=== PATIENT | female | born 1950 | race Caucasian/White ===

== ENCOUNTER 2018-12-09 13:57 | Observation (INO) | payer MEDICARE, BC ==
[~2018-12-09] VITALS: Ht 152.4 cm; Wt 72.7 kg
--- NOTE | ~2018-12-09 | HEMODYNAMI ---
PATIENT:DENZEL REYNA MEDICAL RECORD: [id number] : 50 LOCATION:[facility] D.2119 ADMISSION DATE: 12/09/18 Generatedon:12/10/20189:59 Patient name: DENZEL REYNA Patient #: [id number] SSN: : 1950 Date of study: 12/10/2018 Page: Of Hemodynamic Procedure Report Patient Data Patient Demographics Procedure consent was obtained First Name: DENZEL Gender: Female Last Name: AXEL : 1950 [facility] Initial: C Age: 68 year(s) Patient #: [id number] Race: Unknown Additional ID: [id number] Contact details [address]: [address] [place] [address] State: [place] City: [place] Zip code: [address] Past Medical History Allergies Allergen Reaction Date Comments Reported Other allergy 12/10/2018 PCN, MORPHINE Admission Admission Data Admission Date: 12/09/2018 Admission Time: 15:43 Admit Source: Other Insurance Payor: Medicare Room #: D.2119 Height (in.): 60 BSA: 1.7 (m2) Height (cm.): 152.4 BMI: 31.31 (kg/m2) Weight (lbs.): 160.32 Weight (kg.): 72.72 Lab Results Lab Result Date: 12/10/2018 Lab Result Time: 0:00 Biochemistry Name Units Result Min Max BUN mg/dl 13 --(--*-)-- 7 18 Creatinine mg/dl 0.9 --(-*--)-- 0.6 1.3 CBC Name Units Result Min Max Hemoglobin g/dl 13.6 --(*---)-- 13.5 17.5 Procedure Procedure Types Cath Procedure Diagnostic Procedure [facility] w/Coronaries Sedation Charges Moderate Sedation up to 15 minutes PCI Procedure Coronary Stent Coronary Stent Initial PTCA PTCA Additional Procedure Description Procedure Date Procedure Date: 12/10/2018 Procedure Start Time: 9:37 Procedure End Time: 9:56 Procedure Staff Name Function Manjit Velázquez MD Performing Physician Joy Mcdermott RT Scrub Raffy Chinchilla RN Nurse Ankita Alonzo RT Monitor Procedure Data Cath Procedure Fluoroscopy Diagnostic fluoroscopy Total fluoroscopy Time: 5.9 time: 5.9 min min Diagnostic fluoroscopy Total fluoroscopy dose: dose: 411.99 mGy 411.99 mGy Contrast Material Contrast Material Type Amount (ml) Isovue 300 94 Entry Location Entry Primary Successful Side Size Upsize Upsize Entry Closure Pel[place]o ccessful Closure Location (Fr) 1 (Fr) 2 (Fr) Remarks Device Remarks Radial Right 6 Fr Mechanical artery Short Compression Estimated blood loss: 10 ml Diagnostic catheters Device Type Used For End Catheter Placement DIAGNOSTIC [place] 110cm 5 Procedure Fr catheter ([id number]) Procedure Complications No complications Procedure Medications Medication Administration Route Dosage Oxygen etCO2 Nasal cannula 2 l/min Heparin Flush Bag added to field 2 bags (1000units/500ml NS) 0.9% NaCl I.V. 100 ml/hr Lidocaine 2% added to field 20 Radial Cocktail added to field 1 syringe (Verapomil 2mg/Nitro 400mcg/Heparin 1500units) Zofran I.V. 4 mg Fentanyl I.V. 50 mcg Versed I.V. 1 mg Fentanyl I.V. 50 mcg Versed I.V. 1 mg Radial Cocktail I.A. 1 syringe (Verapomil 2mg/Nitro 400mcg/Heparin 1500units) Fentanyl I.V. 50 mcg Versed I.V. 1 mg Fentanyl I.V. 50 mcg Heparin Bolus I.V. 4000 units Versed I.V. 1 mg Plavix P.O. 75 mg Hemodynamics Rest BSA: 1.7 (m2) HGB: 13.6 (g/dl) O2 Consumption: Estimated: 153.82 (ml/min) O2 Con sumption indexed: Estimated:90.48 (ml/min/m) Heart Rate: 64 (bpm) Snapshots Pre Cath Intra NCS Post Cath Vital Signs Time Heart Resp SPO2 etCO2 NIBP (mmHg) Rhythm Pain Sedation Rate (ipm) (%) (mmHg) Status Level (bpm) 9:20:44 62 16 100 29.3 161/94(108) NSR 0 (11) 10(A) , No pain 9:24:58 67 17 99 30.8 171/89(125) NSR 0 (11) 10(A) , No pain 9:29:16 68 16 98 31.5 152/87(117) NSR 0 (11) 10(A) , No pain 9:33:30 60 16 92 31.5 124/75(109) NSR 0 (11) 10(A) , No pain 9:37:34 66 16 94 34.5 134/73(103) NSR 0 (11) 10(A) , No pain 9:41:45 71 16 94 29.3 117/62(91) NSR 0 (11) 9(A) , No pain 9:46:36 82 16 95 12.7 130/74(97) NSR 0 (11) 9(A) , No pain 9:50:46 71 16 94 21.8 113/67(92) NSR 0 (11) 9(A) , No pain 9:54:36 85 16 96 24.8 110/73(96) NSR 0 (11) 9(A) , No pain Medications Time Medication Route Dose Verified Delivered Reason Note s Effectiveness by by 9:20:04 Oxygen etCO2 2 l/min Manjit Akbar Per physician Nasal Melania Chinchilla RN cannula 9:20:12 Heparin Flush added 2 bags Manjit Akbar used for Bag to Melania Chinchilla RN procedure (1000units/500ml field NS) 9:20:23 0.9% NaCl I.V. 100 Manjitlana Kaisery Per physician ml/hr Melania Chinchilla RN 9:20:31 Lidocaine 2% added 20ml Manjit Akbar used for to vial Melania Chinchilla oil refinery operator field 9:20:40 Radial Cocktail added 1 Manjit Kaisery used for (Verapomil to syringe Melania Chinchilla oil refinery operator 2mg/Nitro field 400mcg/Heparin 1500units) 9:29:44 Zofran I.V. 4 mg Manjit Akbar for nausea Melania Chinchilla RN 9:37:18 Fentanyl I.V. 50 mcg Manjit Kaisery for sedation Melania Chinchilla RN 9:37:25 Versed I.V. 1 mg Manjit Kaisery for sedation Melania Chinchilla RN 9:38:47 Fentanyl I.V. 50 mcg Manjit Akbar for sedation Melania Chinchilla RN 9:38:51 Versed I.V. 1 mg Manjit Akbar for sedation Melania Chinchilla RN 9:39:56 Radial Cocktail I.A. 1 Manjit mccann (Verapomil syringe Melania Velázquez MD vasodilation 2mg/Nitro 400mcg/Heparin 1500units) 9:41:03 Fentanyl I.V. 50 mcg Manjit Akbar for sedation Melania Chinchilla RN 9:41:09 Versed I.V. 1 mg Manjit Akbar for sedation Melania Chinchilla RN 9:43:21 Fentanyl I.V. 50 mcg Manjit Akbar for sedation Melania Chinchilla RN 9:45:26 Heparin Bolus I.V. 4000 Manjit Kaisery for units Melania Chinchilla RN anticoagulation 9:46:54 Versed I.V. 1 mg Manjit Akbar for sedation Melania Chinchilla RN 9:58:04 Plavix P.O. 75 mg Manjit Akbar for Melania Chinchilla RN anticoagulation Procedure Log Time Note 9:00:41 Raffy Chinchilla RN sent for patient. Start room use. 9:04:42 Time tracking: Regular hours (M-F 7:00 - 5:00) 9:04:46 Plan of Care:Hemodynamics will remain stable., Cardiac rhythm will remain stable., Comfort level will be maintained., Respiratory function will remain adequate., Patient/ family verbilizes understanding of procedure., Procedure tolerated without complication., Recovers from procedure without complications.. 9:05:32 Patient Height : 60 inches 9:05:38 Patient Weight : 160.32 lbs 9:05:41 Admit Source: Other 9:05:48 Insurance Payor : Medicare 9:06:07 Lab Result : Hemoglobin 13.6 g/dl 9:06:07 Lab Result : Creatinine 0.9 mg/dl 9:06:07 Lab Result : BUN 13 mg/dl 9:12:23 Patient allergic to Other allergyPCN, MORPHINE 9:13:49 Patient received from Med II to CCL 3 Alert and oriented. Tansferred to table in Supine position. 9:13:51 Signed procedure consent form obtained from patient. 9:13:53 Warm blankets applied, and chris hugger turned on for patient comfort. 9:13:54 Correct patient and procedure confirmed by team. 9:13:54 ECG and BP/O2 sat monitors applied to patient. 9:19:50 Vital chart was started 9:20:04 Oxygen 2 l/min etCO2 Nasal cannula was administered by Raffy Chinchilla RN; Per physician; 9:20:12 Heparin Flush Bag (1000units/500ml NS) 2 bags added to field was administered by Raffy Chinchilla RN; used for procedure; 9:20:23 0.9% NaCl 100 ml/hr I.V. was administered by Raffy Chinchilla RN; Per physician; 9:20:31 Lidocaine 2% 20ml vial added to field was administered by Raffy Chinchilla RN; used for procedure; 9:20:40 Radial Cocktail (Verapomil 2mg/Nitro 400mcg/Heparin 1500units) 1 syringe added to field was administered by Raffy Chinchilla RN; used for procedure; 9:21:10 Baseline sample Acquired. 9:21:12 Rhythm: sinus rhythm 9:21:14 Full Disclosure recording started 9:21:18 H&P Date Dictated: 12/10/2018 New H&P dictated by physician.. 9:21:19 Pre-procedure instructions explained to patient. 9:21:19 Pre-op teaching completed and patient verbalized understanding. 9:21:22 Family unavailable. 9:21:23 Patient NPO since Midnight. 9:21:25 Is the patient allergic to Iodine/contrast media? No. 9:21:27 Was the patient premedicated? No 9:21:27 Is patient on blood thinner?Yes 9:21:30 ACC The patient was administered the following blood thiners within the last 24 hours: ACCPlavix 9:21:32 Patient diabetic? No. 9:21:35 Previous problem with sedation/anesthesia? Yes NAUSEA 9:21:37 Snore? Yes 9:25:44 Sleep apnea? No 9:25:45 Deviated septum? No 9:26:23 Opens mouth fully? No 9:26:25 Sticks out tongue? Yes 9:26:27 Airway obstruction? No ? 9:26:34 Dentures? Yes ? 9:26:38 Modified Jayy's test Ulnar < 7 seconds 9:26:40 Patient pain scale 0/10 ?. 9:26:44 IV patent on arrival in right antecubital with 0.9% NaCl at [facility]. 9:26:46 Lab results completed and on chart. 9:26:49 Right Radial & Right Groin area was prepped with chlora-prep and draped in sterile fashion 9:26:50 Alarms reviewed by R. N. 9:26:50 Sharps counted by scrub and verified by R.N. 9:26:52 Use device set Radial Dx or PCI 9:26:53 ACIST Syringe (37996) opened to sterile field. 9:26:54 Bag Decanter (2002S) opened to sterile field. 9:26:55 ACIST Manifold (47367) opened to sterile field. 9:26:55 ACIST Hand Control (53288) opened to sterile field. 9:26:57 Tegaderm 4 x 4 (1626W) opened to sterile field. 9:26:59 Medline Cath Pack ([id number]) opened to sterile field. 9:26:59 DIAGNOSTIC WIRE .035 260cm J wire (276340) opened to sterile field. 9:27:00 MBrace Wrist Support ([id number]) opened to sterile field. 9:27:01 SHEATH 6FR Slender (80-7480) opened to sterile field. 9:27:41 TUBING High Pressure Extension (IABP) opened to sterile field. 9:29:44 Zofran 4 mg I.V. was administered by Raffy Chinchilla RN; for nausea; 9:34:09 Zero performed for pressure channel P1 9:35:02 --------ALL STOP TIME OUT------ 9:35:04 Final Timeout: patient, procedure, and site verified with staff and physician. All members of the team are in agreement. 9:35:06 Right Radial & Right Groin site verified by team. 9:35:08 Maximum allowable Isovue 300 dose 300ml. Physician notified. (300ml for normal creatinines. For patients with creatinine of 1.7 or higher multiply weight(kg) x 5 divided by creatinine.) 9:35:11 Fire Safety Assessment: A--An alcohol-based skin anteseptic being used preoperatively., C--Open oxygen or nitrous oxide is being used., D--An ESU, laser, or fiber-optic light is being used. 9:35:21 Physical assessment completed. ASA score P 2 - A patient with mild systemic disease as per Manjit Velázquez MD. 9:35:24 Sedation plan: IV Moderate Sedation Medication:Versed, Fentanyl 9:37:18 Fentanyl 50 mcg I.V. was administered by Raffy Chinchilla RN; for sedation; 9:37:25 Versed 1 mg I.V. was administered by Raffy Chinchilla RN; for sedation; 9:37:43 Procedure started. 9:37:53 Local anesthetic to right radial artery with Lidocaine 2% by Manjit Velázquez MD.INITIAL ACCESS ONLY 9:38:13 Zero performed for pressure channel P1 9:38:47 Fentanyl 50 mcg I.V. was administered by Raffy Chinchilla RN; for sedation; 9:38:51 Versed 1 mg I.V. was administered by Raffy Chinchilla RN; for sedation; 9:39:15 A 6 Fr Short sheath was inserted into the Right Radial artery 9:39:37 A DIAGNOSTIC [place] 110cm 5 Fr catheter (047402) was advanced over the wire and used for Procedure. 9:39:56 Radial Cocktail (Verapomil 2mg/Nitro 400mcg/Heparin 1500units) 1 syringe I.A. was administered by Manjit Velázquez MD; for vasodilation; 9:40:20 LV gram done using MAGUIRE 9:40:22 Injector settings: Ml/sec: 7, Volume: 15, 9:40:49 EF : 70 % 9:41:03 Fentanyl 50 mcg I.V. was administered by Raffy Chinchilla RN; for sedation; 9:41:09 Versed 1 mg I.V. was administered by Raffy Chinchilla RN; for sedation; 9:41:37 RCA angiography performed. 9:41:38 Catheter exchanged over wire. 9:42:14 GUIDE 6FR EBU 3.0 catheter ([id number]) opened to sterile field. 9:42:26 6 Fr EBU 3 guide catheter was inserted over the wire 9:43:21 Fentanyl 50 mcg I.V. was administered by Raffy Chinchilla RN; for sedation; 9:43:53 LCA angiography performed. 9:44:10 CHOICE PT Extra Support 182cm wire ([id number]) opened to sterile field. 9:44:11 INFLATOR Merit BasixCompak (DM5294) opened to sterile field. 9:45:26 Heparin Bolus 4000 units I.V. was administered by Raffy Chinchilla RN; for anticoagulation; 9:45:43 CHOICE ES 182 wire advanced. 9:45:44 WIRE ADVANCED ACROSS OM 9:46:54 Versed 1 mg I.V. was administered by Raffy Chinchilla RN; for sedation; :47:44 Place stent Inflation Number: 1 A INTEGRITY RX 2.5 x 08 stent ([id number]) was prepped and advanced across the 1st Ob [place]. The stent was deployed at 13 ABELARDO for 0:10 (min:sec). 9:47:48 Stent catheter was removed intact over wire. 9:47:53 Wire redirected to CIRC. 9:52:19 Inflate balloon Inflation number: 1 A EUPHORA 2.0 x 12 Balloon ([id number]) was prepped and advanced across the Mid CX, then inflated to 13 ABELARDO for 0:10 (min:sec). 9:52:31 Balloon removed over the wire. 9:52:32 Wire removed. 9:52:33 Guide catheter removed. 9:52:36 TR BAND Standard ([id number]) opened to sterile field. 9:52:43 Procedure ended.(Physican Out) 9:53:21 Sheath removed intact; hemostasis achieved with Mechanical Compression to the Right Radial artery. 9:53:26 Fluoroscopy time 05.90 minutes. 9:53:33 Fluoroscopy dose: 411.99 mGy 9:53:33 Flurop Dose total: 411.99 9:53:37 Contrast amount:Isovue 300 94ml. 9:53:39 TR band inflated with 10cc of air. 9:53:41 Post-procedure physical assessment completed. ASA score P 2 - A patient with mild systemic disease as per Manjit Velázquez MD. 9:53:44 Post procedure rhythm: sinus rhythm 9:53:47 Estimated blood loss: 10 ml 9:53:48 Post procedure instruction explained to patient.Patient verbalizes understanding. 9:53:49 Patient needs reinforcement of post procedure teaching. 9:54:38 Procedure type changed to Cath procedure, Diagnostic procedure, LHC, LHC w/Coronaries, Sedation Charges, Moderate Sedation up to 15 minutes, PCI procedure, Coronary Stent, Coronary Stent Initial, PTCA, PTCA Additional 9:55:44 Procedure and supply charges have been captured, reviewed, submitted and are correct. 9:55:47 Procedure Complication : No complications 9:55:48 Vital chart was stopped 9:55:49 See physician's report for complete and final results. 9:55:50 Report given to Pre/Post Procedure Room. 9:56:01 Patient transfered to Pre/Post Procedure Room with Bed. 9:56:02 Procedure ended. 9:56:02 Full Disclosure recording stopped 9:56:05 End room use (Document Last) 9:58:04 Plavix 75 mg P.O. was administered by Raffy Chinchilla RN; for anticoagulation; Intervention Summary Intervention Notes Time ActionType Lesion and Equipment Action# Pressure Duration Attributes Used 9:47:44 Place stent 1st Ob [place] INTEGRITY RX 1 13 00:10 2.5 x 08 stent ([id number]) 9:52:19 Inflate Mid CX EUPHORA 2.0 1 13 00:10 balloon x 12 Balloon ([id number]) Device Usage Item Name Manufacture Quantity Catalog Number Hospital Part Current Mini mal Lot# / Charge Number Stock Stock Serial# Code ACIST Acist 1 92982 340599 433955 488063 20 Syringe Medical (16436) Systems Inc Bag Decanter Microtek 1 2002S 616936 44265 293514 5 (2002S) Medical Inc. ACIST Acist 1 83733 688188 335711 663964 5 Manifold Medical (78350) Systems Inc ACIST Hand Acist 1 66389 490274 194677 034790 5 Control Medical (50304) Systems Inc Tegaderm 4 x 3M 1 1626W 482943 276885 591615 5 4 (1626W) Medline Cath Medline 1 [id number] 893119 60751 153711 5 Pack ([id number]) DIAGNOSTIC [place] 1 462437 559567 087258 187366 30 WIRE .035 260cm J wire (471451) MBrace Wrist Advanced 1 140-0250-00 986908 19888 956044 5 Support Vascular (222705884) Dynamics SHEATH 6FR Terumo 1 [id number] 788956 455578 664080 5 Slender (80-1060) TUBING High Merit 1 [id number] 889828 012566 6 5 Pressure Medical Extension (IABP) DIAGNOSTIC Terumo 1 44-5695 543148 542690 883590 5 [place] 110cm 5 Fr catheter (470470) GUIDE 6FR Medtronic 1 [id number] 428785 21152 160502 0 EBU 3.0 catheter (QL6ABL00) CHOICE PT [place] 1 [id number] 225276 752193 648396 5 Extra Scientific Support 182cm wire ([id number]) INFLATOR Merit 1 CT2531 951354 887120 775149 15 [facility] Medical BasixCompak (WL3028) INTEGRITY RX Medtronic 1 [id number] 042545 485385 722954 5 [id number] 2.5 x 08 stent ([id number]) EUPHORA 2.0 Medtronic 1 [id number] 632687 099067 932654 5 [id number] x 12 Balloon ([id number]) TR BAND Terumo 1 [id number] 478252 689665 902207 40 Standard ([id number]) Signature Audit [place] Stage Time Signature Unsigned Intra-Procedure 12/10/2018 Ankita Alonzo 9:59:23 AM RT(R) Signatures Monitor : Ankita Alonzo Signature : RT Date : Time : [place] [address] [place] [address]
[2018-12-09] MEDS ORDERED: ISOSORBIDE MONO30 M1 PO (14:08)
[2018-12-09] MEDS ORDERED: ASPIRIN325 MG PO (14:08)
[2018-12-09] MEDS ORDERED: NEXIUM40 MG PO (14:09)
[2018-12-09] MEDS ORDERED: XANAX0.25 MG PO (14:09)
[2018-12-09 14:33] LABS: BASOPHILS 0.5 % (0-2); EOSINOPHILS 2.7 % (0-7); HEMATOCRIT 43.6 % (36.0-48.0); HEMOGLOBIN 14.7 g/dL (12-16); IMMATURE GRANULOCYTES 0.5 % (0-5); LYMPHOCYTES 30.4 % (15-50); MCH 28.5 pg (26.0-34.0); MCHC 33.7 g/dL (31.0-37.0); MCV 84.7 fL (80.0-100.0); MEAN PLATELET VOLUME 11.5 fL (7.4-10.4); MONOCYTES 6.7 % (2-11); NEUTROPHILS 59.2 % (40-80); PLATELET COUNT 249 10x3/uL (130-400); RBC 5.15 10x6/uL (4.00-5.40); RDW 13.6 % (11.5-14.5); WBC 10.9 10x3/uL (4.8-10.8)
[2018-12-09 14:50] LABS: ALBUMIN 3.7 g/dL (3.4-5.0); ALKALINE PHOSPHATASE 90 U/L (46-116); ALT (SGPT) 18 U/L (10-68); BILIRUBIN - TOTAL 0.18 mg/dL (0.2-1.3); CALC OSMOLALITY 277 mosm/kg (275-300); CALCIUM 9.2 mg/dL (8.5-10.1); CARBON DIOXIDE 30.6 mmol/L (21.0-32.0); CHLORIDE - SERUM 102 mmol/L (98-107); CREATININE - SERUM 0.8 mg/dL (0.6-1.3); GLUCOSE 97 mg/dL (74-106); POTASSIUM - SERUM 3.9 mmol/L (3.5-5.1); PROTEIN - SERUM 8.1 g/dL (6.4-8.2); SODIUM 139 mmol/L (136-145); UREA NITROGEN 13 mg/dL (7-18); eGFR NON AFRICAN AMERICAN 75 mL/min (90-120)
[2018-12-09 14:58] LABS: CREATINE KINASE 72 UL (21-215); MAGNESIUM - SERUM 2.1 mg/dL (1.8-2.4)
[2018-12-09 15:03] LABS: TROPONIN-I < 0.017 ng/mL (0.000-0.060)
[2018-12-09 15:37] VITALS: BP 159/75
[2018-12-09 17:08] VITALS: BP 133/88; Ht 152.4 cm; Wt 72.7 kg
[2018-12-09] MEDS ORDERED: AMBIEN10 MG PO (19:23)
[2018-12-09 20:00] VITALS: BP 123/64
[2018-12-10] VITALS: BP 114/62
[2018-12-10 04:00] VITALS: BP 121/67
[2018-12-10 05:59] LABS: BASOPHILS 0.8 % (0-2); EOSINOPHILS 5.2 % (0-7); HEMATOCRIT 40.1 % (36.0-48.0); HEMOGLOBIN 13.6 g/dL (12-16); IMMATURE GRANULOCYTES 0.5 % (0-5); LYMPHOCYTES 38.6 % (15-50); MCH 28.4 pg (26.0-34.0); MCHC 33.9 g/dL (31.0-37.0); MCV 83.7 fL (80.0-100.0); MEAN PLATELET VOLUME 11.2 fL (7.4-10.4); MONOCYTES 7.2 % (2-11); NEUTROPHILS 47.7 % (40-80); PLATELET COUNT 210 10x3/uL (130-400); RBC 4.79 10x6/uL (4.00-5.40); RDW 13.9 % (11.5-14.5)
[2018-12-10 06:17] LABS: WBC 6.5 10x3/uL (4.8-10.8)
[2018-12-10 06:32] LABS: CALC OSMOLALITY 282 mosm/kg (275-300); CALCIUM 8.7 mg/dL (8.5-10.1); CARBON DIOXIDE 28.2 mmol/L (21.0-32.0); CHLORIDE - SERUM 105 mmol/L (98-107); CKMB 0.7 U/L (0.0-3.6); CREATINE KINASE 54 UL (21-215); CREATININE - SERUM 0.9 mg/dL (0.6-1.3); GLUCOSE 105 mg/dL (74-106); POTASSIUM - SERUM 3.8 mmol/L (3.5-5.1); SODIUM 142 mmol/L (136-145); TROPONIN-I < 0.017 ng/mL (0.000-0.060); UREA NITROGEN 13 mg/dL (7-18); eGFR NON AFRICAN AMERICAN 66 mL/min (90-120)
[2018-12-10 08:16] VITALS: BP 137/80
[2018-12-10] MEDS ORDERED: PLAVIX75 MG PO (10:23)
--- NOTE | 2018-12-12 14:39 | OP ---
PATIENT NAME: DENZEL REYNA MEDICAL RECORD: [id number] :50 LOCATION:[facility] ADMISSION DATE:12/09/18 SURGEON: AJ MOONEY MD DATE OF OPERATION: 12/10/2018 PROCEDURES: 1. PTCA and stent, left circumflex first obtuse marginal. 2. PTCA, left circumflex. 3. Left heart catheterization. 4. Selective coronary angiography. 5. Left ventriculogram. INDICATION: Angina and coronary artery disease. PROCEDURE IN DETAIL: After informed consent was obtained with detailed description of risks and benefits as well as alternative therapies, the patient elected to proceed with angiogram and angioplasty. The right radial area was prepped and draped in normal sterile fashion. The right radial artery was cannulated via modified Seldinger technique with placement of 6-Yi sheath. All catheters were exchanged through this sheath. FINDINGS: Left ventriculogram performed in standard 30-degree MAGUIRE view reveals good cardiac wall motion throughout all segments. Overall ejection fraction is estimated at 60%. SELECTIVE CORONARY ANGIOGRAPHY: 1. Left main is with no significant angiographic disease. 2. Left anterior descending has a previously placed stent that is widely patent with no restenosis. No disease elsewise throughout the LAD or its branches. 3. Left circumflex has a previously placed stent. This is widely patent. The ostium of the obtuse marginal is 90% stenosed. 4. Right coronary has moderate irregularities, but no flow-limiting stenosis. PTCA AND STENT OF THE FIRST OBTUSE MARGINAL: The stent used was 2.5 x 8 mm Integrity. This caused plaque shift into the circumflex itself. This was addressed with a 2.0 balloon. Result was 0% residual throughout. OVERALL IMPRESSION: Successful PTCA and stent of the left circumflex first obtuse marginal, going from 90% initial stenosis to 0% residual. TRANSINT:[id number] Voice Confirmation ID: [id number] DOCUMENT ID: [id number] AJ MOONEY MD at 1439 CC: [id number] DICTATION DATE: 12/10/18 0958 PREFINISH OPERATOR: 12/10/18 1540 DIS IN 12/10/18 [place] [address]
--- NOTE | 2018-12-12 14:39 | HP ---
PATIENT: DENZEL REYNA MEDICAL RECORD: [id number] ACCOUNT: [id number] LOCATION:[facility] : 50 ADMISSION DATE: 12/09/18 PCP: MARC WOODWARD MD HISTORY AND PHYSICAL EXAMINATION ADMITTING DIAGNOSES: 1. Unstable angina. 2. Coronary artery disease. 3. Previous percutaneous transluminal coronary angioplasty stent. 4. Gastroesophageal reflux disease. HISTORY OF PRESENT ILLNESS: Mrs. Reyna has a past cardiac history of PTCA stent in the distant past for 1 month. She has been having increasing episodes of chest discomfort. She was placed on a nitropatch as well as Imdur by her primary care doctor. This has helped, but she continues to have episodes of chest discomfort in an escalating fashion, just like that of her previous angina. PHYSICAL EXAMINATION: GENERAL APPEARANCE: Well-nourished, well-developed, appears stated age. Level of distress, comfortable. PSYCHIATRIC: Mental status, alert, normal affect. Orientation, oriented to time, place and person. EYES: Lids and conjunctiva, noninjected. No discharge, no pallor. ENT: Lips, teeth, gums, normal dentition. Oropharynx, no cyanosis, no pallor. NECK: Carotid arteries, bilateral normal upstroke, no bruits, no thrills. JUGULAR VEINS: No jugular venous pressure or distention. CERVICAL LYMPH NODES: Nontender, nonenlarged. THYROID: Not enlarged. Nontender. No nodules. LUNGS: Respiratory effort, unlabored. CHEST: Normal curvature. No thoracic deformity. No chest wall tenderness. Percussion, resonant. Auscultation, clear. No wheezes, no rales, no rhonchi. CARDIOVASCULAR: Precordial exam, nondisplaced. No heaves or pericardial thrills. Rate and rhythm, regular. Heart sounds, normal S1, normal S2. No S3, no gallop, no rub. Systolic murmur, not heard. Diastolic murmur, not heard. EXTREMITIES: No cyanosis, no edema. Peripheral pulses, full and equal in all extremities, except as noted. No bruits appreciated. ABDOMEN: Soft, nondistended. Normal aorta. No bruit. Nontender. No masses. Liver, nontender, no hepatomegaly. Spleen, nontender, no splenomegaly. MUSCULOSKELETAL: No joint tenderness. No joint swelling. No erythema. NEUROLOGICAL: Normal gait, normal strength, normal tone. SKIN: Warm and dry. OVERALL IMPRESSION: Unstable angina in an increasing fashion. We will proceed with repeat coronary angiography. Further care depends upon the findings of the angiography. TRANSINT:[id number] Voice Confirmation ID: [id number] DOCUMENT ID: [id number] HISTORY AND PHYSICAL [id number] DENZEL REYNA, AJ ARIAS at 1439 CC: [id number] DICTATION DATE: 12/10/18812 GRADER PATROL: 12/10/18 1259 DIS IN 12/10/18 [facility] [address] [place] [address]
--- NOTE | 2018-12-12 14:39 | DS ---
PATIENT:DENZEL REYNA :50 MEDICAL RECORD: [id number] DISCHARGE SUMMARY ADMISSION DATE: 12/09/18 DISCHARGE DATE: 12/10/18 DIAGNOSES: 1. Percutaneous transluminal coronary angioplasty stent circumflex this admission. 2. Unstable angina. 3. Coronary artery disease. 4. Gastroesophageal reflux disease. HOSPITAL COURSE: Mrs. Reyna presents with anginal symptomatology. She has a past history of stenting in the distant past. She underwent cardiac catheterization revealing significant stenosis of the circumflex, first obtuse marginal, underwent successful PTCA stent of this territory, had an uneventful postop course. She was discharged home with the addition of Plavix to her medical regimen. She will follow up with [facility] in 1 month. TRANSINT:[id number] Voice Confirmation ID: [id number] DOCUMENT ID: [id number] AJ MOONEY MD at 1439 CC: [id number] DICTATION DATE: 12/10/18 0959 ZOO DIRECTOR: 12/11/18 0209 DIS IN 12/10/18 [place] [address] [place] [address]
== END 2018-12-10 14:00 | disposition home or self-care (01) ==
LOC: D.ER 13:57 → OBSVTIME 15:43 → D.EDHOLD 15:43 → D.M2 15:53 → D.CLR 12-10 10:14
PROVIDERS: Family Medicine; ADMIT Internal Medicine Interventional Cardiology; ATTEND Internal Medicine Interventional Cardiology
DX: I25.110 Atherosclerotic heart disease of native coronary artery with unstable angina pectoris (principal); K21.9 Gastro-esophageal reflux disease without esophagitis

== ENCOUNTER 2019-02-01 08:24 | Emergency (ER) | payer MEDICARE, BC ==
[~2019-02-01 08:24] MED LIST: AMBIEN10 MG PO; ASPIRIN325 MG PO; ISOSORBIDE MONO30 M1 PO; NEXIUM40 MG PO; PLAVIX75 MG PO; XANAX0.25 MG PO
[2019-02-01 08:39] VITALS: BMI 30.9
[2019-02-01 09:27] LABS: APPEARANCE CLEAR (CLEAR); BILIRUBIN NEGATIVE (NEGATIVE); COLOR YELLOW (YELLOW); GLUCOSE NEGATIVE (NEGATIVE); KETONE NEGATIVE (NEGATIVE); NITRITE NEGATIVE (NEGATIVE); PROTEIN NEGATIVE (NEGATIVE); SPECIFIC GRAVITY 1.015 (1.005-1.020); UROBILINOGEN NORMAL (NORMAL)
[2019-02-01 10:02] LABS: ALBUMIN 3.5 g/dL (3.4-5.0); ALKALINE PHOSPHATASE 79 U/L (46-116); ALT (SGPT) 16 U/L (10-68); BILIRUBIN - TOTAL 0.35 mg/dL (0.2-1.3); CALC OSMOLALITY 280 mosm/kg (275-300); CALCIUM 8.3 mg/dL (8.5-10.1); CARBON DIOXIDE 27.5 mmol/L (21.0-32.0); CHLORIDE - SERUM 107 mmol/L (98-107); CREATININE - SERUM 0.9 mg/dL (0.6-1.3); GLUCOSE 112 mg/dL (74-106); PROTEIN - SERUM 6.6 g/dL (6.4-8.2); SODIUM 141 mmol/L (136-145); UREA NITROGEN 9 mg/dL (7-18); eGFR NON AFRICAN AMERICAN 66 mL/min (90-120)
[2019-02-01 10:05] LABS: AMYLASE - SERUM 28 U/L (25-115); LIPASE 131 U/L (73-393); TROPONIN-I < 0.017 ng/mL (0.000-0.060)
[2019-02-01 10:09] LABS: BASOPHILS 0.5 % (0-2); EOSINOPHILS 3.1 % (0-7); HEMATOCRIT 43.4 % (36.0-48.0); HEMOGLOBIN 14.8 g/dL (12-16); IMMATURE GRANULOCYTES 0.3 % (0-5); LYMPHOCYTES 22.6 % (15-50); MCH 28.6 pg (26.0-34.0); MCHC 34.1 g/dL (31.0-37.0); MCV 83.9 fL (80.0-100.0); MEAN PLATELET VOLUME 11.8 fL (7.4-10.4); MONOCYTES 7.8 % (2-11); NEUTROPHILS 65.7 % (40-80); PLATELET COUNT 239 10x3/uL (130-400); RBC 5.17 10x6/uL (4.00-5.40); RDW 14.5 % (11.5-14.5); WBC 11.1 10x3/uL (4.8-10.8)
[2019-02-01] MEDS ORDERED: ZOFRAN ODT4 MG/UDTAB PO (10:25)
[2019-02-01] MEDS ORDERED: LOMOTIL 2.5-0.1 EAC1 PO (10:31)
[2019-02-01] MEDS ORDERED: HYDROCODON-ACE1 EAC2 PO (10:36)
[2019-02-01 10:42] VITALS: BP 139/61
== END 2019-02-01 10:43 | disposition home or self-care (01) ==
LOC: D.ER 08:24
PROVIDERS: Emergency Medicine
DX: R11.10 Vomiting, unspecified (principal); R19.7 Diarrhea, unspecified

== ENCOUNTER → 2019-10-23 07:57 | Outpatient (CLI) | payer MEDICARE, BC ==
[~2019-10-23 07:57] MED LIST changes: +HYDROCODON-ACE1 EAC2 PO; +LOMOTIL 2.5-0.1 EAC1 PO; +ZOFRAN ODT4 MG/UDTAB PO
== END | disposition home or self-care (01) ==
LOC: D.RAD 07:57
PROVIDERS: ATTEND Internal Medicine Gastroenterology
DX: K21.9 Gastro-esophageal reflux disease without esophagitis (principal); R11.2 Nausea with vomiting, unspecified

== ENCOUNTER 2020-01-01 11:06 | Outpatient (CLI) | payer MEDICARE, BC ==
--- NOTE | 2020-01-01 15:14 | NUR ---
MANOMETRY COMPLETED. PH PROBE PLACED. WILL RETURN IN 24 HOURS FOR REMOVAL. TOLERATED WELL. ALL DC INSTRUCTIONS GIVEN. VOICES UNDERSTANDING. DC'D HOME AMBULATORY. ADVISED TO CALL OR COME BACK IF ANY PROBLEMS.
== END 2020-01-01 14:24 | disposition home or self-care (01) ==
LOC: D.OPS 11:06
PROVIDERS: ATTEND Surgery
DX: R13.10 Dysphagia, unspecified (principal); K21.9 Gastro-esophageal reflux disease without esophagitis

== ENCOUNTER → 2020-01-09 09:13 | Outpatient (CLI) | payer MEDICARE, BC | END | disposition home or self-care (01) | LOC: D.CT 09:13 | PROVIDERS: ATTEND Surgery | DX: R10.9 Unspecified abdominal pain (principal) ==

== ENCOUNTER 2020-01-23 05:08 | Inpatient (IN) | payer MEDICARE, BC ==
[~2020-01-23] VITALS: Ht 152.4 cm; Wt 79.8 kg
--- NOTE | ~2020-01-23 | DS ---
PATIENT:DENZEL REYNA :50 MEDICAL RECORD: [id number] DISCHARGE SUMMARY ADMISSION DATE: 01/24/20 DISCHARGE DATE: 01/25/20 ADMISSION DIAGNOSES: 1. Gastroesophageal reflux disease with hiatal hernia. 2. Left lower quadrant lipoma. DISCHARGE DIAGNOSES: 1. Gastroesophageal reflux disease with hiatal hernia. 2. Left lower quadrant lipoma. PROCEDURE: Laparoscopic Sho with hiatal hernia repair and excision of left lower quadrant lipoma on 01/23/2020. CONSULTATIONS: None. REPORT OF HOSPITALIZATION: The patient was admitted to the hospital after a laparoscopic Sho with hiatal hernia repair and excision of a small lesion in the left lower quadrant, which came back as a lipoma with fat necrosis. The patient had a little bit of nausea and vomiting postoperatively despite the fact she had a normal esophagram which showed no evidence of a leak and good passage of contrast through the esophagus into the stomach. She was maintained in the hospital for one extra day. By the next day, she was having bowel function, tolerating a diet, and her pain was better controlled. She was felt stable for discharge home at that point. DISCHARGE INSTRUCTIONS: Return to clinic or call with any questions or concerns, fevers, chills, nausea, vomiting or worsening abdominal pain. ACTIVITIES: No heavy lifting or straining for 2 weeks postoperatively. FOLLOWUP: In clinic with me in 2-3 weeks. DIET: Soft pureed diet with no bread or meat for 6 weeks. TRANSINT:[id number] Voice Confirmation ID: [id number] DOCUMENT ID: [id number] NYA HAMM MD CC: [id number] DICTATION DATE: 01/25/20 1255 SPIRAL TUBE WINDER HELPER: 01/26/20 1024 DIS IN 01/25/20 [facility] [address] [id number]
[~2020-01-23 05:08] MED LIST changes: +ARMOUR THYROID120 MG PO; +HYOSEYAMINE; +METOCLOPRAMIDE; +METOPROLOL TART50 MG PO; +PEPCID AC20 MG PO; +VITAMIN D; +ZETIA10 MG PO
[2020-01-23 05:30] LABS: BASOPHILS 0.4 % (0-2); EOSINOPHILS 5.7 % (0-7); HEMOGLOBIN 13.6 g/dL (12-16); IMMATURE GRANULOCYTES 0.3 % (0-5); LYMPHOCYTES 30.3 % (15-50); MCH 28.1 pg (26.0-34.0); MCHC 32.4 g/dL (31.0-37.0); MCV 86.8 fL (80.0-100.0); MEAN PLATELET VOLUME 11.2 fL (7.4-10.4); MONOCYTES 7.9 % (2-11); NEUTROPHILS 55.4 % (40-80); PLATELET COUNT 237 10x3/uL (130-400); RBC 4.84 10x6/uL (4.00-5.40); RDW 13.4 % (11.5-14.5); WBC 7.6 10x3/uL (4.8-10.8)
[2020-01-23 06:03] LABS: ANION GAP 11.6 mmol/L (8-16); CALCIUM 8.8 mg/dL (8.5-10.1); CARBON DIOXIDE 27.7 mmol/L (21.0-32.0); POTASSIUM - SERUM 4.3 mmol/L (3.5-5.1)
[2020-01-23] MEDS ORDERED: ULTRAM50 MG PO (06:19)
[2020-01-23 06:27] VITALS: BP 123/66; BMI 35.2
[2020-01-23 10:42] VITALS: BP 148/67
[2020-01-23 11:47] VITALS: BP 148/67; BMI 34.4
[2020-01-23 20:00] VITALS: BP 128/64
--- NOTE | 2020-01-23 20:00 | NUR ---
PATIENT RESTING IN BED WATCHING TV. NO S/S OF ACUTE DISTRESS. NO C/O AT THIS TIME. PATIENT IS ON 2L NASAL CANNULA. PATIENT HAS LEFT FOREARM, NORMAL SALINE @ 125 ML/HR AND DILAUDID MECHANICAL SYSTEM TECHNICIAN. IV IS PATENT WITHOUT REDNESS, SWELLING, OR TENDERNESS. PATIENT HAS 6 LAP SITES ON ABDOMEN FROM SURGERY TODAY. ALL BANDAIDS ARE IN PLACE, C/D/I. PATIENT EXPERINCES NAUSEA WHEN MOVING AND GOING TO THE BATHROOM. PATIENT IS A STRICT NPO. PATIENT AMBULATES TO THE BATHROOM. CALL LIGHT WITHIN REACH. WILL CONTINUE TO MONITOR.
[2020-01-24] VITALS: BP 112/68
--- NOTE | 2020-01-24 01:07 | NUR ---
PATIENT COMPLAINED OF BEING CONGESTED AND COUGHED WHEN GOING TO THE BATHROOM. PATIENT COUGHED UP BLOODY MUCOUS, BUT IT IS VERY DARK. SUGGESTED TO PATIENT THAT IT WAS FROM BEING INTUBATED TODAY DURING HER SURGERY. CALL LIGHT WITHIN REACH. WILL CONTINUE TO MONITOR.
--- NOTE | 2020-01-24 03:54 | NUR ---
I have reviewed this patient and I concur with the Shift Assessment completed by the Licensed Practical Nurse today this shift.
[2020-01-24 04:00] VITALS: BP 115/55
[2020-01-24 06:51] LABS: BASOPHILS 0.3 % (0-2); EOSINOPHILS 1.1 % (0-7); HEMATOCRIT 38.1 % (36.0-48.0); IMMATURE GRANULOCYTES 0.3 % (0-5); LYMPHOCYTES 14.8 % (15-50); MCH 27.8 pg (26.0-34.0); MCHC 31.5 g/dL (31.0-37.0); MCV 88.2 fL (80.0-100.0); MEAN PLATELET VOLUME 11.8 fL (7.4-10.4); NEUTROPHILS 74.5 % (40-80); PLATELET COUNT 229 10x3/uL (130-400); RBC 4.32 10x6/uL (4.00-5.40); RDW 13.3 % (11.5-14.5); WBC 9.5 10x3/uL (4.8-10.8)
[2020-01-24 06:59] LABS: CALC OSMOLALITY 269 mosm/kg (275-300); CALCIUM 8.3 mg/dL (8.5-10.1); CARBON DIOXIDE 29.7 mmol/L (21.0-32.0); CHLORIDE - SERUM 101 mmol/L (98-107); GLUCOSE 110 mg/dL (74-106); POTASSIUM - SERUM 4.4 mmol/L (3.5-5.1); SODIUM 135 mmol/L (136-145); UREA NITROGEN 10 mg/dL (7-18); eGFR NON AFRICAN AMERICAN 88 mL/min (90-120)
--- NOTE | 2020-01-24 07:04 | NUR ---
PT IS RESTING IN BED WITH EYES CLOSED. RESPIRAITONS ARE EVEN AND UNLABORED. PT IS EASILY AROUSED WITH VERBAL STIMULATION. PT IS AAO X 4 UPON AROUSAL. PIV INFUSING PER ORDER WITHOUT DIFFICULTY. PT REPORTS NAUSEA WITH MOVEMENT AND "TALKING". PT REPORTS SLIGHT PAIN TO LUQ AND STATES THAT PAIN "WAS BETTER" AFTER BELCHING. PT DENIES BM AND DENIES HAVING PASSED GAS SINCE PROCEDURE. LAP SITES X 6 NOTED TO ABDOMEN. BS ARE HYPOACTIVE X 4. PT DENIES "RECENT" EMESIS. BED IS IN THE LOWEST POSITION. CALL LIGHT AND BEDSIDE TABLE ARE WITHIN REACH. SIDE RAILS X 2. PT DENIES FURTHER NEEDS. INCENTIVE SPIROMETER AT BEDSIDE. INCENTIVE SPIROMETER ENCOURAGED. PT VERBALIZES UNDERSTANDING. WILL CONT TO MONITOR.
[2020-01-24 07:06] LABS: CREATININE - SERUM 0.7 mg/dL (0.6-1.3)
[2020-01-24 13:27] VITALS: Ht 152.4 cm; Wt 79.8 kg
[2020-01-24 15:13] VITALS: BP 120/75
[2020-01-24 15:27] VITALS: BP 156/77
[2020-01-24 18:43] VITALS: BP 150/82
[2020-01-24 20:00] VITALS: BP 153/72
--- NOTE | 2020-01-24 20:00 | NUR ---
PATIENT SITTING IN CHAIR WATCHING TV. NO S/S OF ACUTE DISTRESS. NO C/O AT THIS TIME. PATIENT HAS IV IN LEFT FOREARM, NORMAL SALINE @ KVO. IV IS PATENT WITHOUT REDNESS, SWELLING, OR TENDERNESS. PATIENT HAS 6 LAP SITES ON ABDOMEN, BANDAIDS C/D/I. PATIENT IS UP ADLIB. CALL LIGHT WITHIN REACH. WILL COTINUE TO MONITOR.
--- NOTE | 2020-01-25 02:58 | NUR ---
I have reviewed this patient and I concur with the Shift Assessment completed by the Licensed Practical Nurse today this shift.
[2020-01-25 04:00] VITALS: BP 151/86
[2020-01-25 08:41] VITALS: BP 174/76
--- NOTE | 2020-01-25 08:43 | NUR ---
RESTING IN BED, NO DISTRESS NOTED, IV INFUSING, DENIES PAIN, 6 DRESSINGS INTACT, NO BLEEDING NOTED, STATES SHE HAD A BM THIS AM
[2020-01-25 12:16] VITALS: BP 157/81
[2020-01-25] MEDS ORDERED: HYDROCODON-ACE1 EA10 PO (12:47)
[2020-01-25] MEDS ORDERED: REGLAN10 MG PO (12:47)
--- NOTE | 2020-01-25 12:48 | OP ---
PATIENT NAME: DENZEL REYNA MEDICAL RECORD: [id number] :50 LOCATION:[id number] ADMISSION DATE:01/24/20 SURGEON: PRAKASH HAMM MD DATE OF OPERATION: 01/23/2020 PREOPERATIVE DIAGNOSES: 1. Gastroesophageal reflux disease. 2. Lipoma of left lower quadrant of the abdomen. 3. Disorder of the thyroid. 4. Hypertension. POSTOPERATIVE DIAGNOSES: 1. Gastroesophageal reflux disease. 2. Lipoma of left lower quadrant of the abdomen. 3. Disorder of the thyroid. 4. Hypertension. PROCEDURE: 1. Laparoscopic Sho with hiatal hernia repair. 2. Excision of 2 cm left lower quadrant lipoma. SURGEON: Prakash Hamm MD REPORT OF PROCEDURE: The patient's abdomen was prepped and draped in sterile fashion. A Veress needle was inserted in the left upper quadrant and the abdomen was insufflated. An 11-mm Visiport trocar was inserted in the midline just above the umbilicus. Once we were inside, we could see that the patient's Veress needle was in the fatty tissue, but had not penetrated any bowel. This was removed. An 11-mm trocar was placed in the left subcostal region. A 5-mm trocar was then placed in the epigastrium, a 5-mm trocar was placed in the right lateral subcostal region, and a final 5-mm trocar was placed in the left lateral abdomen. The patient's liver was elevated on the left side and that way we can more clearly visualize the patient's esophageal hiatus. There was a hiatal hernia present with the top 2-3 cm of the stomach in the chest. This came down fairly easily, but would retract back into the chest with release of tension. We began our dissection by taking down the lesser omentum using Harmonic scalpel. This dissection was continued to the right side of the right becky. As we did this we came anteriorly and posteriorly and then eventually penetrated the hernia sac and entered the thoracic cavity and began taking down as much of the sac as possible from the thoracic cavity. Once we had gone as far anteriorly and posteriorly as possible, then we went to the greater curvature of the stomach and began taking down the short gastrics again using Harmonic scalpel. This dissection was continued over the fundus to the left side of the right becky and we eventually penetrated the hernia sac and began taking the hernia sac down out of the thoracic cavity. At this point, we had 360-degree inspection of the esophagus and the hernia sac was completely taken down. The distal 2-3 cm of the esophagus would easily rest in the abdomen with gentle tension. The hernia sac and a layer of fatty tissue were removed from the GE junction. This was done with Harmonic scalpel and once they were removed, then we could clearly see the structures and the right and left vagus nerves were noted to be intact. A 0 TiCron times 3 was used to close the esophageal hiatus. At the conclusion of this, we had good approximation of the tissues. We then performed a 360-degree posterior wrap of the fundus of the stomach around the distal esophagus. This was done with interrupted 0 Polydeks times 3 with the top and the bottom suture incorporating a bite of the esophagus. At the OPERATIVE REPORT [id number] DENZEL REYNA conclusion of this, the wrap was noted to be in good position with minimal tension. The indwelling OG tube was easily removed. We inspected the area and could see no signs of any active bleeding. We irrigated out the abdomen thoroughly with normal saline. The liver retractor was then removed. We closed the 11-mm trocar site fascias with interrupted 0 Vicryl using a Marko-Lj suture passer device. The ports and insufflation were then removed. We then approached the patient's left lower quadrant where a transverse incision was made overlying a small area of firm fatty tissue. As we dissected down, there was a collection of dark discolored fatty tissue present that was very hard. This appeared to be most consistent with an area of fat necrosis. We were able to completely excise this firm fatty tissue and it measured approximately 2 cm in greatest diameter. The subcutaneous tissues were inspected and there was no sign of any active bleeding. We used a total of 20 mL of 0.25% Marcaine with epinephrine to the surrounding tissues of all the incisions and then closed all the incisions with running subcutaneous 5-0 Monocryl. The wounds were dressed appropriately. COMPLICATIONS: None. CONDITION: Stable. ANESTHESIA: General endotracheal and local. BLOOD LOSS: Minimal. TRANSINT:[id number] Voice Confirmation ID: [id number] DOCUMENT ID: [id number] PRAKASH HAMM MD at 1248 CC: [id number] DICTATION DATE: 01/23/20 0946 PROPERTY MANAGEMENT ASSISTANT: 01/23/20 1050 ADM IN [facility] [address] [id number]
--- NOTE | 2020-01-25 13:00 | NUR ---
D/C IV, TIP INTACT, DC ORDERS ON CHART
--- NOTE | 2020-01-25 14:25 | NUR ---
TAKEN TO PRIVATE VEHICLE PER W/C, ERICA SUSANNA, RX IN HAND ALONG WITH DC PAPERS, VOICED NO CONCERNS
== END 2020-01-25 14:31 | disposition home or self-care (01) | DRG 328 ==
LOC: D.MS 05:08 → D.OPS 05:08 → D.PAN 07:30 → D.MS 09:59 → D.OPS 01-24 15:21 → D.MS 01-24 15:22
PROVIDERS: ADMIT Surgery; ATTEND Surgery
PROC: 0DV44ZZ Restriction of Esophagogastric Junction, Percutaneous Endoscopic Approach (ICD-10-PCS; principal; 2020-01-23 07:30)
PROC: 0JB80ZZ Excision of Abdomen Subcutaneous Tissue and Fascia, Open Approach (ICD-10-PCS; 2020-01-23 07:30)
DX: K21.9 Gastro-esophageal reflux disease without esophagitis (principal); D17.1 Benign lipomatous neoplasm of skin and subcutaneous tissue of trunk; I10 Essential (primary) hypertension; K44.9 Diaphragmatic hernia without obstruction or gangrene